=== PATIENT | male | born 1945 | race Two or more races ===

== ENCOUNTER 2016-11-01 21:09 | Observation (INO) | payer MEDICAID, MEDICARE ==
[~2016-11-01] VITALS: Ht 175.3 cm; Wt 72.6 kg
[~2016-11-01 21:09] MED LIST: AML5T PO; CHLO25TA22 PO; CLON2TAB PO; CLOP75TA28 PO; IBUP-1174 PO; MULT-777 OR
[2016-11-01 22:01] LABS: Basophils # (auto) 0 uL; Basophils % (auto) 0.5 % (0.0-2.0); Eosinophils # (auto) 0.1 uL; Eosinophils % (auto) 1.9 % (0.0-7.0); Hematocrit 40.9 % (41.0-53.0); Hemoglobin 13.5 g/dL (13.5-17.5); Lymphocytes # (auto) 1.3 uL; Lymphocytes % (auto) 32.1 % (10.0-50.0); Mean Corpuscular Hemoglobin 30.4 pg (28.0-32.0); Mean Corpuscular Volume 92.3 fL (80.0-100.0); Mean Platelet Volume 8.6 fL (7.4-10.4); Monocytes # (auto) 0.5 uL; Monocytes % (auto) 11.4 % (0.0-12.0); Neutrophils # (auto) 2.2 uL; Neutrophils % (auto) 54.1 % (37.0-80.0); Platelet Count (auto) 139 10^3/uL (140-450)
[2016-11-01 22:12] LABS: Albumin 3.4 g/dL (3.4-5.0); Alkaline Phosphatase 115 U/L (45-117); Anion Gap 10 (5-15); Aspartate Aminotransferase 61 U/L (15-37); BUN/Creatinine Ratio 14.9; Bilirubin, Total 0.2 mg/dL (0.2-1.0); Blood Urea Nitrogen 13 mg/dL (7-18); Calcium 8.3 mg/dL (8.5-10.1); Carbon Dioxide 29 mmol/L (21-32); Chloride 111 mmol/L (98-107); GFR African American 112 mL/min; GFR Non-African American 92 mL/min; Glucose 89 mg/dL (74-106); Potassium 3.4 mmol/L (3.5-5.1); Sodium 150 mmol/L (136-145); Total Protein 7.1 g/dL (6.4-8.2)
[2016-11-01 23:34] LABS: Urine Bilirubin Negative (Negative); Urine Blood Negative /uL (Negative); Urine Color Yellow (Yellow); Urine Glucose Normal (Normal); Urine Ketone Negative (Negative); Urine Mucus FEW (None Seen); Urine Nitrite Negative (Negative); Urine RBC <1 /hpf (0 - 3); Urine Urobilinogen Normal (Negative)
[2016-11-02] MEDS ORDERED: THIAMINE HCL 100 MG/ML 2ML VIAL ONE (02:43)
[2016-11-02] MEDS ORDERED: MVI in SODIUM CHLORIDE 0.9% 1,010 ML ONE (02:44)
[2016-11-02] MEDS ORDERED: THIAMINE INJ 100 MG, MULTIPLE VITAMIN 10 ML, FOLIC ACID 1 MG, MAGNESIUM SULF SDV 50% 8 ... IV ONE ×5 (02:45)
[2016-11-02] MEDS ORDERED: LORazepam 2MG/ML-1ML VIAL IV ONE (06:15)
[2016-11-02 07:00] VITALS: BP 160/91
[2016-11-02] MEDS ORDERED: THIAMINE INJ 100 MG, MULTIPLE VITAMIN 10 ML, FOLIC ACID 1 MG, MAGNESIUM SULF SDV 50% 8 ... IV SCH ×5 (12:00)
== END 2016-11-02 07:50 | disposition home or self-care (01) | DRG 897 ==
LOC: ER 21:17 → OVERFLOW 11-02 04:11 → ER 11-02 07:50
PROVIDERS: ADMIT Emergency Medicine; ATTEND Emergency Medicine
DX: F10.220 Alcohol dependence with intoxication, uncomplicated (principal); E87.6 Hypokalemia
CPT/HCPCS: 36415; 80053; 80320; 81001; 82962; 84484; 85025; 93005; 96365; 96366; 96375; 99285; G0378; G0434; J2060; J3411; J7030

== ENCOUNTER 2016-11-09 19:19 | Observation (INO) | payer MEDICARE ==
[~2016-11-09] VITALS: Ht 177.8 cm; Wt 79.4 kg
[2016-11-09] MEDS ORDERED: SODIUM CHLORIDE 0.9% 1,000 ML IV ONE ×2 (20:45→21:16)
[2016-11-09 20:54] LABS: Basophils # (auto) 0 uL; Basophils % (auto) 0.3 % (0.0-2.0); Eosinophils # (auto) 0.1 uL; Eosinophils % (auto) 2.1 % (0.0-7.0); Hemoglobin 13.7 g/dL (13.5-17.5); Lymphocytes # (auto) 1.2 uL; Lymphocytes % (auto) 23.8 % (10.0-50.0); Mean Corpuscular Hemoglobin 30.3 pg (28.0-32.0); Mean Corpuscular Hgb Conc. 32.6 g/dL (32.0-36.0); Mean Platelet Volume 8.4 fL (7.4-10.4); Monocytes # (auto) 0.5 uL; Neutrophils # (auto) 3.3 uL; Neutrophils % (auto) 63.8 % (37.0-80.0); Platelet Count (auto) 168 10^3/uL (140-450); Red Cell Distribution Width 17.6 % (11.6-16.0); White Blood Cell 5.2 10^3/uL (4.4-10.8)
[2016-11-09] MEDS ORDERED: SODIUM CHLORIDE 0.9% 250 ML IV ONE (21:16)
[2016-11-09 21:21] LABS: Albumin 3.5 g/dL (3.4-5.0); BUN/Creatinine Ratio 12.3; Bilirubin, Total 0.3 mg/dL (0.2-1.0); Calcium 8.5 mg/dL (8.5-10.1); Magnesium 2.5 mg/dL (1.6-2.6); Total Protein 7.6 g/dL (6.4-8.2)
[2016-11-09] MEDS ORDERED: chlordiazePOXIDE HCL 5 MG CAP PO ONE (21:30)
[2016-11-10 03:25] VITALS: BP 153/77
== END 2016-11-10 03:49 | disposition home or self-care (01) | DRG 897 ==
LOC: ER 19:21 → OVERFLOW 11-10 00:17 → ER 11-10 03:49
PROVIDERS: ADMIT Emergency Medicine; ATTEND Emergency Medicine
DX: F10.120 Alcohol abuse with intoxication, uncomplicated (principal)
CPT/HCPCS: 36415; 80053; 80320; 83735; 85025; 96360; 99285; G0378; J7030

== ENCOUNTER 2017-08-07 22:25 | Emergency (ER) | payer OTHER ==
[~2017-08-07] VITALS: Ht 167.6 cm; Wt 72.6 kg
[2017-08-07 23:38] LABS: Basophils # (auto) 0 uL; Basophils % (auto) 0.4 % (0.0-2.0); Eosinophils # (auto) 0 uL; Hematocrit 41.9 % (41.0-53.0); Hemoglobin 14.2 g/dL (13.5-17.5); Lymphocytes # (auto) 0.3 uL; Lymphocytes % (auto) 4.1 % (10.0-50.0); Mean Corpuscular Hemoglobin 31.8 pg (28.0-32.0); Mean Corpuscular Hgb Conc. 33.9 g/dL (32.0-36.0); Mean Corpuscular Volume 93.9 fL (80.0-100.0); Monocytes # (auto) 0.4 uL; Monocytes % (auto) 6.4 % (0.0-12.0); Neutrophils # (auto) 6.2 uL; Neutrophils % (auto) 89.1 % (37.0-80.0); Platelet Count (auto) 165 10^3/uL (140-450); Red Blood Cells 4.46 10^6/uL (4.5-5.90); Red Cell Distribution Width 15.8 % (11.8-14.3)
[2017-08-08] LABS: Alanine Aminotransferase 84 U/L (16-61); Albumin 3.9 g/dL (3.4-5.0); Anion Gap 11 (5-15); Aspartate Aminotransferase 159 U/L (15-37); BUN/Creatinine Ratio 13.8; Blood Alcohol < 3.0 mg/dL (0-5); Blood Urea Nitrogen 15 mg/dL (7-18); Calcium 8.5 mg/dL (8.5-10.1); Carbon Dioxide 25 mmol/L (21-32); Chloride 102 mmol/L (98-107); GFR African American 86 mL/min; GFR Non-African American 71 mL/min; Glucose 108 mg/dL (74-106); Sodium 138 mmol/L (136-145)
[2017-08-08 00:02] LABS: Alkaline Phosphatase 136 U/L (45-117); Bilirubin, Total 0.7 mg/dL (0.2-1.0); Total Protein 8.2 g/dL (6.4-8.2)
[2017-08-08] MEDS ORDERED: SODIUM CHLORIDE 0.9% 1,000 ML IV ONE (06:39)
[2017-08-08] MEDS ORDERED: LORazepam 2MG/ML-1ML VIAL IV ONE (06:45)
[2017-08-08] MEDS ORDERED: LORazepam 2MG/ML-1ML VIAL ONE (06:49)
[2017-08-08 07:59] VITALS: BP 163/85
== END 2017-08-08 08:13 | disposition home or self-care (01) ==
LOC: ER 22:44
DX: F10.239 Alcohol dependence with withdrawal, unspecified (principal); E78.5 Hyperlipidemia, unspecified; I25.2 Old myocardial infarction; Z88.8 Allergy status to other drugs, medicaments and biological substances; Z79.899 Other long term (current) drug therapy
CPT/HCPCS: 36415; 80053; 80320; 85025; 94761; 96361; 96374; 99284; J2060; J7030